=== PATIENT | male | born 1980 | race Caucasian/White ===

== ENCOUNTER 2018-12-23 18:03 | Observation (INO) ==
[2018-12-23] MEDS ORDERED: ASPIRIN PR ONE (18:25)
[2018-12-23] MEDS ORDERED: ASPIRIN PO ONE (18:25)
[2018-12-23] MEDS ORDERED: ASPIRIN ONE (18:34)
[2018-12-23 18:47] LABS: INR 0.96; PROTIME 13.5 Seconds (11.0-16.0)
--- NOTE | 2018-12-23 18:47 | Diag Imaging Result Doc PS360 ---
EXAM: CHEST-2 VIEWS HISTORY: cp TECHNIQUE: Chest two views COMPARISON: 03/09/2015 FINDINGS: The lungs are well expanded. The heart is not enlarged. The vessels are not distended. There are no infiltrates. No pleural effusions. IMPRESSION: No acute abnormality. Electronically signed by Agustin Grimes 12/23/2018 6:45 PM
[2018-12-23 18:48] LABS: PTT 30.8 Seconds (22.3-41.8)
[2018-12-23 19:04] LABS: AGAP 12; ALBUMIN 4.6 g/dL (3.5-5.0); ALKALINE PHOSPHATASE 80 U/L (32-122); BUN 16 mg/dL (8-22); CALCIUM 9.5 mg/dL (8.8-10.2); CHLORIDE 105 mmol/L (98-107); COSMO 286; CREATININE 1.1 mg/dL (0.7-1.2); ESTIMATED GFR > 60; GLUCOSE 87 mg/dL (70-104); GOT 21 U/L (10-34); GPT 26 U/L (10-44); POTASSIUM 3.9 mmol/L (3.5-5.1); SODIUM 143 mmol/L (136-145); TCO2 26 mmol/L (25-35); TOTAL BILIRUBIN 0.58 mg/dL (0.20-1.00); TOTAL PROTEIN 6.9 g/dL (6.3-8.3)
[2018-12-23 19:14] LABS: BASO# 0.09 X1000 (0.0-0.2); BASO% 0.7 % (0.0-0.8); EOS# 0.46 X1000 (0.0-0.7); EOS% 3.4 % (0.0-10.0); HEMATOCRIT 39.9 % (42.0-52.0); HEMOGLOBIN 13.6 g/dL (14.0-18.0); IMM GRAN# 0.04 X1000 (0.0-0.04); IMM GRAN% 0.3 % (0.0-0.5); LYMPH% 27.1 % (20.5-51.1); MCH 29.8 PG (27-31); MCHC 34.1 g/dL (33-37); MCV 87.5 FL (81-99); MONO# 1.39 X1000 (0.11-0.59); MONO% 10.2 % (1.7-9.3); MPV 10.5 FL (7.4-10.4); NEUT# 7.98 X1000 (1.4-6.5); NEUT% 58.3 % (42.2-75.2); PLT 323 X1000 (130-400); RBC 4.56 XMIL (4.7-6.1); RDW 13.3 % (11.5-14.5); WBC 13.66 X1000 (4.8-10.8)
[2018-12-23 19:22] LABS: CK PROFILE 617 U/L (24-204)
[2018-12-23 19:41] LABS: CK INDEX 1.1 (0.0-2.5); CK-MB 6.82 ng/mL (0.0-5.0)
[2018-12-23] MEDS ORDERED: TORADOL IV ONE (19:42)
[2018-12-23] MEDS ORDERED: ZOFRAN IV ONE ×2 (19:42→22:35)
[2018-12-23 21:36] LABS: URINE SOURCE CLEAN CATCH
[2018-12-23 21:41] LABS: BILIRUBIN URINE NEGATIVE (NEGATIVE); BLOOD URINE NEGATIVE (NEGATIVE); COLOR YELLOW; GLUCOSE URINE NEGATIVE (NEGATIVE); KETONE URINE TRACE mg/dL (NEGATIVE); LEUKOCYTES URINE NEGATIVE (NEGATIVE); NITRITE URINE NEGATIVE (NEGATIVE); PH URINE 5.5; PROTEIN URINE 50 mg/dL (NEGATIVE); SP GRAVITY URINE 1.035; TURBIDITY URINE CLEAR (CLEAR); UROBILINOGEN URINE NORMAL (NORMAL)
[2018-12-23 21:42] LABS: UR EPITHELIAL CELLS <10 /HPF (<10); URINE BACTERIA NEGATIVE /HPF; URINE RBC <10 /HPF (<10); URINE WBC <10 /HPF (<10)
[2018-12-23 21:52] LABS: UR AMPHETAMINES QUAL PRESUMPTIVE POSITIVE (NONE DETECT); UR BARBITUATES QUAL NONE DETECTED (NONE DETECT); UR BENZODIAZEPIN QUAL PRESUMPTIVE POSITIVE (NONE DETECT); UR CANNABINOIDS QUAL NONE DETECTED (NONE DETECT); UR COCAINE QUAL NONE DETECTED (NONE DETECT); UR METHADONE QUAL NONE DETECTED (NONE DETECT); UR OPIATES QUAL PRESUMPTIVE POSITIVE (NONE DETECT); UR OXYCODONE QUAL PRESUMPTIVE POSITIVE (NONE DETECT); UR PCP QUAL NONE DETECTED (NONE DETECT)
[2018-12-23] MEDS ORDERED: NS 1,000 ML IV ONE (22:35)
[2018-12-23] MEDS ORDERED: ATIVAN IV ONE (22:35)
[2018-12-23] MEDS ORDERED: NICODERM PATCH TD ONE (22:36)
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
[2018-12-24] MEDS ORDERED: NITROGLYCERIN SL PRN (00:27)
[2018-12-24] MEDS ORDERED: ZOFRAN IV PRN (00:27)
[2018-12-24] MEDS ORDERED: TESSALON PO PRN (00:27)
[2018-12-24 01:42] LABS: BASO# 0.12 X1000 (0.0-0.2); EOS# 0.74 X1000 (0.0-0.7); HEMATOCRIT 40.7 % (42.0-52.0); HEMOGLOBIN 13.8 g/dL (14.0-18.0); IMM GRAN# 0.04 X1000 (0.0-0.04); IMM GRAN% 0.3 % (0.0-0.5); LYMPH# 3.71 X1000 (1.2-3.4); MCH 30.1 PG (27-31); MCHC 33.9 g/dL (33-37); MCV 88.9 FL (81-99); MONO# 1.22 X1000 (0.11-0.59); MONO% 9.9 % (1.7-9.3); MPV 10.2 FL (7.4-10.4); NEUT# 6.52 X1000 (1.4-6.5); NEUT% 52.8 % (42.2-75.2); PLT 299 X1000 (130-400); RBC 4.58 XMIL (4.7-6.1); RDW 13.4 % (11.5-14.5); WBC 12.35 X1000 (4.8-10.8)
--- NOTE | 2018-12-24 02:17 | HISTORY AND PHYSICAL ---
DATE OF SERVICE: 12/23/2018. PRIMARY CARE PHYSICIAN: None. CHIEF COMPLAINT: Chest pain. HISTORY OF PRESENT ILLNESS: The patient is a 38-year-old male without any significant past medical history who presented to the emergency department with complaint of chest pain. The patient is a poor historian who is mostly sleeping and most of the history is obtained from the ER charting and other records. However, the patient was able to deny having any headache, fever, chills, nausea, vomiting, diarrhea, hemoptysis or weight changes. He has complained of cough and chest pain. PAST MEDICAL HISTORY: None. PAST SURGICAL HISTORY: None. ALLERGIES: To morphine and tramadol. CURRENT MEDICATIONS: None. SOCIAL HISTORY: Admits to smoking. Denies any history of alcohol or illicit drug use. FAMILY HISTORY: No history of coronary disease. REVIEW OF SYSTEMS: Fourteen point review of system as listed in the HPI, other systems negative. PHYSICAL EXAMINATION: GENERAL: The patient is resting comfortably, he is mostly sleeping. VITAL SIGNS: Temperature 97 degrees, pulse 107, respirations 24, blood pressure 127/82. HEENT: Atraumatic, normocephalic. Extraocular movements intact. PERRLA. NECK: Supple. CHEST: Clear to auscultation. CARDIOVASCULAR: Regular rate and rhythm. ABDOMEN: Soft. Positive bowel sounds. EXTREMITIES: No edema. NEUROLOGIC: He is awake, alert, but he is sleeping. : No bladder distention. SKIN: Warm. LABORATORIES AND STUDIES: WBC 13.6, hemoglobin 13.6, hematocrit 39.9, platelets 323,000. Sodium 143, potassium 3.9, chloride 105, CO2 is 26, BUN is 16, creatinine is 1.1, glucose is 87, troponin is 0.010. His toxicology screen is positive for opioids, oxycodone, amphetamines and benzodiazepines. ASSESSMENT: The patient is a 38-year-old male without any significant past medical history who presented to the emergency department with complaint of chest pain and cough symptoms. He was evaluated in the emergency department due to his presenting symptoms. We will place him for observation for further evaluation and management. 1. Chest pain is atypical. 2. Acute bronchitis. 3. Polysubstance abuse. PLAN: 1. We will admit the patient to the medical floor with telemetry. 2. Continue with cardiac workup. Check EKG, serial cardiac enzymes. Have the patient continue on aspirin. We will use sublingual nitroglycerin p.r.n. for chest pain. 3. We will add Tessalon Perles for his cough. 4. will refer patient to seek outpatient rehabilitation for drug addiction. 5. Put the patient on DVT prophylaxis with SCDs. 6. We will continue to follow, reassess and make further recommendation based on the patient's clinical course. cc: Porter Casey MD MTDD
[2018-12-24 02:32] LABS: CK INDEX 1.2 (0.0-2.5); CK-MB 6.74 ng/mL (0.0-5.0)
[2018-12-24] MEDS: TYLENOL PO PRN ×2 (06:44→14:36)
[2018-12-24] MEDS ORDERED: PRILOSEC PO SCH (07:00)
--- NOTE | 2018-12-24 07:36 | EKG Report ---
Test Performed on : 12/23/2018 6:19:58 PM Test Reason : cp Blood Pressure : / mmHG Vent. Rate : 113 BPM Atrial Rate : 113 BPM P-R Int : 144 ms QRS Dur : 092 ms QT Int : 324 ms P-R-T Axes : 044 006 038 degrees QTc Int : 444 ms Sinus tachycardia. Otherwise normal ECG When compared with ECG of 18-JUL-2009 21:42, No significant change was found Unconfirmed Result
[2018-12-24] MEDS ORDERED: ASPIRIN PO SCH (09:00)
--- NOTE | 2018-12-24 10:56 | Diag Imaging Result Doc PS360 ---
CT HEAD W/O CONTRAST - 12/24/2018 INDICATION: Headache, confusion COMPARISON: 12/30/2010 FINDINGS: The ventricles and sulci are normal in size and contour. No intracranial mass or hemorrhage. The skull is intact. The sinuses mastoids and middle ears are clear. IMPRESSION: Negative exam. This exam was performed using automated exposure control, adjustment of mA or kV according to patient size, and/or use of iterative reconstruction technique Electronically signed by Prince Wallace 12/24/2018 10:53 AM
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
[2018-12-24 11:00] LABS: CK INDEX 1.4 (0.0-2.5); CK-MB 5.16 ng/mL (0.0-5.0)
[2018-12-24] MEDS ORDERED: ZOSYN 3.375 GM in NS 50 ML IV SCH (14:00)
--- NOTE | 2018-12-24 14:54 | ECHO REPORT ---
ORDER DATE: 12/24/2018 MEASUREMENTS: Interventricular septum 1.2 cm. Left ventricular posterior wall 0.9 cm. Diastolic diameter 5.1 cm. Left atrium 3.1 cm. Aorta 3.5. SUMMARY OF THE 2-DIMENSIONAL IMAGING: Normal left ventricular cavity size. Estimated ejection fraction of 60%. Aortic valve leaflets are trileaflet. Mitral valve was normal. Tricuspid valve was normal. Pulmonic valve was normal. There is no aortic stenosis or regurgitation. There is trace to mild tricuspid regurgitation. Peak velocity across the tricuspid valve was 2.1 m/sec. There is no pericardial effusion or obvious intracardiac mass or thrombus. cc: MD Yarely Bingham PA
[2018-12-24 16:39] VITALS: BP 117/51
[2018-12-24 18:34] LABS: CK INDEX 1.5 (0.0-2.5); CK-MB 4.51 ng/mL (0.0-5.0)
--- NOTE | 2018-12-25 04:11 | DISCHARGE SUMMARY ---
ADMISSION DATE: 12/24/2018 DISCHARGE DATE: 12/24/2018 FINAL DISCHARGE DIAGNOSES: 1. Atypical chest pain. 2. Acute bronchitis. 3. Leukocytosis. 4. Polysubstance abuse. CONSULTATIONS: Cardiology consultation with Dr. Robertson. HOSPITAL COURSE: Mr. Ag is a 38-year-old male with a history of polysubstance abuse who presented to the ER with a chief complaint of productive cough and chest pain. The patient was admitted to the hospitalist service and serial cardiac enzymes were obtained. The patient's cardiac enzymes were negative. The patient was seen by the puppy trainer who ordered an echocardiogram that revealed an ejection fraction of 60%. Also a head CT was done that was noted to be negative. The patient was diagnosed with acute bronchitis and given a prescription for Augmentin. The patient's chest pain also resolved. The patient was ultimately cleared for discharge home on 12/24/2018. DISCHARGE MEDICATIONS: Augmentin 875/125 one tablet oral twice a day x7 days. DIET: A regular diet. FOLLOW-UP INSTRUCTIONS: The patient will need to follow up with his primary care physician in 1 to 2 weeks. cc: Janeth Lake MD
== END 2018-12-24 18:15 | disposition home or self-care (01) ==
LOC: ED 18:03 → 3N 18:03 → SUATTDRO 12-24 00:06
PROVIDERS: ATTEND Internal Medicine
CPT/HCPCS: 70450; 71020; 71046; 80053; 80061; 80101; 80301; 80307; 80324; 80345; 80346; 80353; 80358; 80361; 80365; 81001; 82550; 82553; 83721; 83880; 83992; 84484; 85025; 85610; 85730; 87040; 87275; 87276; 87804; 93005; 93306; 96372; 96374; 96375; 96376; 99285; A9270; G0431; G0434; G0479; G0480; J1885; J2060; J2405; J2543; J7030